=== PATIENT | male | born 1970 | race Caucasian/White ===

== ENCOUNTER 2019-08-28 10:01 | Day surgery (SDC) | payer OTHER ==
[2019-08-26 15:00] VITALS: BMI 25.7
[2019-08-28] MEDS ORDERED: MIDAZOLAM HCL 2 MG/2 ML SINGLE DOSE VIAL ONE (10:14)
[2019-08-28] MEDS ORDERED: ROPIVACAINE HCL 0.5% 30ML VIAL ONE (10:14)
[2019-08-28] MEDS ORDERED: DEXAMETHASONE SOD PHOSPHATE/PF 10 MG/ML SDV ONE (10:14)
[2019-08-28] MEDS ORDERED: EPINEPHrine 1:1,000 1 MG/1 ML - 30ML VIAL (INJECTION) ONE (10:26)
[2019-08-28] MEDS ORDERED: SUCCINYLCHOLINE CHLORIDE 200 MG/10 ML SYRINGE ONE (11:29)
[2019-08-28] MEDS ORDERED: PROPOFOL 20 ML ONE (11:29)
[2019-08-28] MEDS ORDERED: ceFAZolin SODIUM 1 GM VIAL ONE (11:53)
[2019-08-28 13:04] VITALS: TEMP 97.5
[2019-08-28 14:10] VITALS: PULSE 57
[2019-08-28] MEDS ORDERED: oxyCODONE HCL 5 MG TABLET PO PRN (14:10)
[2019-08-28] MEDS ORDERED: ONDANSETRON 4 MG/2 ML VIAL IVPUSH PRN (14:10)
[2019-08-28 14:14] VITALS: BP 113/57
[2019-08-28] MEDS ORDERED: LACTATED RINGERS SOLUTION 1,000 ML IV SCH (14:15)
--- NOTE | 2019-08-30 12:47 | OP ---
DATE OF OPERATION: 08/28/2019 PREOPERATIVE DIAGNOSES: 1. Right shoulder partial-thickness rotator cuff tear. 2. Right shoulder possible labral tear. 3. Right shoulder subacromial impingement syndrome. POSTOPERATIVE DIAGNOSES: 1. Right shoulder partial-thickness supraspinatus rotator cuff tear. 2. Right shoulder partial labral tear. 3. Right shoulder subacromial impingement syndrome/bursitis/subacromial spur. OPERATIVE PROCEDURE: 1. Right shoulder operative arthroscopy with extensive debridement of glenohumeral joint and rotator cuff. 2. Right shoulder arthroscopic subacromial decompression with anterior inferior acromioplasty. SURGEON: Guido Mohamud MD BASEBALL GLOVE SHAPER: WILL Mcgee ANESTHESIA: Regional. COMPLICATIONS: None. ESTIMATED BLOOD LOSS: Minimal. INDICATIONS FOR PROCEDURE: The patient is a 48-year-old male with the above finding indicated for operative treatment. Risks, benefits, alternatives were discussed with the patient at length. Proper informed consent was obtained. DESCRIPTION OF PROCEDURE: After proper identification of patient and correct operative site, patient was brought to the operative room and placed supine on the table with prominences well padded. Sedation was given by the anesthesiologist. Regional anesthesia was given. Right upper extremity was prepped and draped in the usual sterile fashion. He was placed in the beach chair position with points of contact well padded and in line cervical position maintained throughout the procedure. Intravenous antibiotics were given. Time-out procedure was performed. Arthroscopy was performed through posterolateral and anterior portals. All portals were made with skin incision only and blunt dissection down to the joint capsule. Glenohumeral joint was 1st observed and found to have no articular defects. Labrum was moderately frayed superiorly, but the biceps anchor was intact. Biceps tendon itself was normal in appearance even in the axillary articular portion. Remainder of the labrum was intact with only mild fraying. There was moderate synovitis within the glenohumeral joint. Extensive debridement of the labrum and synovitis was performed. Subscapularis was intact. Anterior glenohumeral ligaments were intact. There were no loose bodies in the axillary pouch. The supraspinatus was observed and found to have mild undersurface fraying, which was debrided. This was less than 5% of the thickness of the rotator cuff. Infraspinatus was intact. Arthroscope was then introduced in the subacromial space where a [id number] bursitis was found. This was debrided with mechanical shaver. There was partial-thickness fraying and tearing of the anterior aspect of the supraspinatus tenderness. Total thickness width was significantly less than 50% tearing of the tendon. This was debrided with mechanical shaver. A large anterior inferior subacromial spur was noted, and then acromioplasty was performed. Shoulder was taken through a range of motion, and there was no further impingement. Wounds were irrigated and repaired with 5-0 nylon sutures. Sterile dressings and sling and ice were placed. Patient was reversed from anesthesia and brought to the recovery room in stable condition. He tolerated the procedure well. Chris Man, the surgeon's assistant, was integral throughout the procedure. This procedure could not have been performed without a skilled operative arthroscopic surgeon's assistant. GUIDO MOHAMUD M.D. [id number]
== END 2019-08-28 14:15 | disposition home or self-care (01) ==
LOC: FASU 10:01
PROVIDERS: ATTEND Orthopaedic Surgery Hand Surgery
PROC: 0RNJ4ZZ Release Right Shoulder Joint, Percutaneous Endoscopic Approach (ICD-10-PCS; 2019-08-28)
PROC: 0RBJ4ZZ Excision of Right Shoulder Joint, Percutaneous Endoscopic Approach (ICD-10-PCS; principal; 2019-08-28 12:07)
DX: M75.111 Incomplete rotator cuff tear or rupture of right shoulder, not specified as traumatic (principal); M75.41 Impingement syndrome of right shoulder; M24.111 Other articular cartilage disorders, right shoulder; M75.51 Bursitis of right shoulder; M25.711 Osteophyte, right shoulder
CPT/HCPCS: 94760